=== PATIENT | female | born 1995 | race African-American/Black ===

== ENCOUNTER 2022-10-30 11:22 | Emergency (ER) | payer MEDICAID, OTHER ==
[~2022-10-30] VITALS: Ht 172.7 cm; Wt 63.5 kg
[2022-10-30 12:02] VITALS: BP 104/71
[2022-10-30 13:08] LABS: Basophils # (auto) 0.1 10 ^3/uL (0-0.2); Basophils % (auto) 0.5 % (0.0-2.0); Eosinophils # (auto) 0.1 10 ^3/uL (0-0.8); Eosinophils % (auto) 0.9 % (0.0-7.0); Hematocrit 33.3 % (36.0-46.0); Hemoglobin 9.7 g/dL (12.2-16.2); Lymphocytes # (auto) 2.2 10 ^3/uL (0.4-5.4); Lymphocytes % (auto) 21.4 % (10.0-50.0); Mean Corpuscular Hemoglobin 18.2 pg (28.0-32.0); Mean Corpuscular Hgb Conc. 29.1 g/dL (32.0-36.0); Mean Corpuscular Volume 62.5 fL (80.0-100.0); Monocytes # (auto) 0.6 10 ^3/uL (0-1.3); Monocytes % (auto) 5.5 % (0.0-12.0); Neutrophils # (auto) 7.4 10 ^3/uL (1.6-8.6); Neutrophils % (auto) 71.7 % (37.0-80.0); Nucleated Red Blood Cells % 0.1 %; Red Blood Cells 5.32 10^6/uL (4.0-5.20); Red Cell Distribution Width 19.7 % (11.8-14.3); White Blood Cell 10.3 10^3/uL (4.4-10.8)
[2022-10-30] MEDS ORDERED: NALOXONE HCL 0.4 MG/ML VIAL IV ONE (17:30)
== END 2022-10-31 18:33 | disposition left against medical advice (07) ==
LOC: ER 11:22 → EDBD 11:22 → ER 10-31 18:33
DX: O46.8X1 Other antepartum hemorrhage, first trimester (principal); O26.891 Other specified pregnancy related conditions, first trimester; R10.2 Pelvic and perineal pain; F11.10 Opioid abuse, uncomplicated; Z3A.10 10 weeks gestation of pregnancy; Z53.29 Procedure and treatment not carried out because of patient's decision for other reasons
CPT/HCPCS: 36415; 76801; 76817; 84702; 85025; 86850; 86900; 86901